=== PATIENT | male | born 1960 | race Caucasian/White ===

== ENCOUNTER 2016-11-14 06:02 | Day surgery (SDC) | payer MEDICARE ==
[~2016-11-14] VITALS: Ht 175.3 cm; Wt 83.6 kg
[~2016-11-14 06:02] MED LIST: ASPIRIN325 MG PO; CARDURA4 MG PO; FOLIC ACID0.8 MG PO; HYDROCODONE-APA1 TAB PO; KLONOPIN1 MG PO; MULTIPLE VITAMI1 TA1 PO; OMEPRAZOLE40 MG PO; PERCOCET 10/3251 TA1 PO; TAZTIA XT360 MG PO; VITAMIN B-1100 M1 PO; VITAMIN B-121000 MCG PO; WELCHOL625 MG PO; ZESTRIL20 MG PO; ZYLOPRIM300 MG PO
[2016-11-14 07:26] LABS: BASOPHILS 0.5 % (0.0-2.0); EOSINOPHILS 2.5 % (0-7); HEMATOCRIT 44.2 % (42.0-54.0); HEMOGLOBIN 15.3 g/dL (13.5-17.5); IMMATURE GRANULOCYTES 3.3 % (0-5); LYMPHOCYTES 23.6 % (15-50); MCH 35.6 pg (26.0-34.0); MCHC 34.6 g/dL (31.0-37.0); MCV 102.8 fL (80.0-100.0); MEAN PLATELET VOLUME 9.7 fL (7.4-10.4); MONOCYTES 8.3 % (2-11); NEUTROPHILS 61.8 % (40-80); PLATELET COUNT 114 10x3/uL (130-400); RDW 14.1 % (11.5-14.5); WBC 6.1 10x3/uL (4.8-10.8)
[2016-11-14] MEDS ORDERED: LEVOTHYROXINE50 MCG PO (07:37)
[2016-11-14] MEDS ORDERED: COZAAR50 MG PO (07:38)
[2016-11-14 07:46] LABS: CALC OSMOLALITY 280 mosm/kg (275-300); CALCIUM 9.5 mg/dL (8.5-10.1); CARBON DIOXIDE 24.7 mmol/L (21.0-32.0); CHLORIDE - SERUM 106 mmol/L (98-107); CREATININE - SERUM 0.9 mg/dL (0.6-1.3); GLUCOSE 105 mg/dL (74-106); SODIUM 142 mmol/L (136-145); UREA NITROGEN 7 mg/dL (7-18); eGFR NON AFRICAN AMERICAN > 90 mL/min (90-120)
[2016-11-14 07:48] VITALS: BP 151/99; Ht 175.3 cm; Wt 83.6 kg
--- NOTE | 2016-11-14 09:40 | NUR ---
09 LIZBETH JOHANSEN, NOTIFIED OF NEED AND ATTEMPTED TO GET A TIME FRAME TO GIVE PT FOR TODAYS CT.
--- NOTE | 2016-11-14 12:14 | NUR ---
1045 REPORT TO TORIBIO BERMEO RN. 1150 REPORT FROM TORIBIO BERMEO RN. [address]
--- NOTE | 2016-11-18 18:58 | OP ---
PATIENT NAME: MELONIE HERNÁNDEZ MEDICAL RECORD: [id number] :64 LOCATION:D.[facility] ADMISSION DATE: SURGEON: GILBERTO CRANDALL MD DATE OF OPERATION: 11/14/2016 PREOPERATIVE DIAGNOSIS: Screening colonoscopy. POSTOPERATIVE DIAGNOSIS: Submucosal colonic mass located at 20 cm from the anal verge, approximately 2 cm in diameter. OPERATION PERFORMED: Colonoscopy to the cecum with biopsies of submucosal mass at 20 cm. SURGEON: Gilberto Crandall MD ANESTHESIA: TIVA per RETAIL LINK ANALYST. REFERRING PHYSICIAN: Dr. Milian. PREOPERATIVE NOTE: Mr. Hernández is a 56-year-old white male patient with hypertension, coronary artery disease and COPD. He had a hernia repair and a partial colectomy about 10 years ago done, the patient says for diverticulitis. He also says he had a small-bowel obstruction postop that required return to the operating room. He has been followed Dr. Milian clinic and at this time, has no complaints relative to his colon or GI tract. He denies any change in bowel habit, constipation or diarrhea. No hematochezia or miguel blood per rectum, no abdominal pain, etc. He says that he has had 1 hospitalization for diverticulitis since his resection. At this time, old records are not yet available, but I have asked medical records to locate them for me for my review. The patient had a standard MiraLax bowel prep and has been n.p.o. past midnight. DESCRIPTION OF PROCEDURE: With the patient under TIVA with propofol per RETAIL LINK ANALYST, he was turned in the lateral decubitus position, digital rectal exam was performed and this was normal. There was no stool in the rectum and the prostate was without nodules or any significant enlargement. There was normal anal sphincter tone and no evidence of perianal sepsis or inflammation. No hemorrhoidal thrombosis, etc. The Olympus colonoscope was introduced and advanced proximally, almost immediately, I noted about a 2 cm diameter submucosal mass pointing or projecting into the lumen of the colon. This was located at about 20 cm from the anal verge. There was no sign of bleeding or ulceration or any abnormal mucosal vasculature. I did not see any other abnormalities in this area or evidence of a prior colonic anastomosis, but his prior anastomosis may have been at this level. Multiple biopsies were obtained of the mass and electrocautery utilized to achieve hemostasis as the patient had not discontinued his aspirin preoperatively. The scope was then advanced onward to the cecum without difficulty and then withdrawn. The prep actually was poor and it is quite possible that smaller mucosal lesions may have been missed during the examination, but no other gross findings were noted. There particularly was no evidence of diverticulosis. The area of biopsy was reinspected and no active bleeding was going on or evidence of any other complication. The scope was then withdrawn further and retroflexed within the rectum and the anal canal examined from above. No pathology being found. The colonoscope was straightened and removed and the patient then continued to be OPERATIVE REPORT [id number] MELONIE HERNÁNDEZ observed in the GI lab and then subsequently in the outpatient department. He tolerated procedure well. There was no blood loss, etc. PLAN: The patient possible have a CT scan of the abdomen and pelvis done today with and without IV and p.o. contrast, I had not ordered rectal contrast because of the fact that he just had biopsies. I will have him back to see me in my office next week by which time I should not only have been able to review his prior records, but should have the results of today's biopsy and CT scan. At the very least, the patient will require repeat colonoscopy in 1 year, just because of his poor prep. At this point, the optimal management of the submucosal mass remains be determined. TRANSINT:[id number] Voice Confirmation ID: [id number] DOCUMENT ID: [id number] GILBERTO CRANDALL MD at 1858 CC: MITCH MILIAN MD [id number] DICTATION DATE: 11/14/16914 DIRECTOR OF DIETARY: 11/14/16 1631 [facility] 11/14/16 [facility] [address] [place] [address]
[2017-01-10] MEDS ORDERED: COMBIVENT RESPIM4 GM INH (14:40)
[2017-01-10] MEDS ORDERED: ASMANEX0.135 GM INH (14:42)
== END 2016-11-14 13:00 | disposition home or self-care (01) ==
LOC: D.OPS 06:02
PROVIDERS: Anesthesiology
DX: Z12.11 Encounter for screening for malignant neoplasm of colon (principal); K52.89 Other specified noninfective gastroenteritis and colitis

== ENCOUNTER 2016-12-24 00:13 | Inpatient (IN) | payer MEDICARE ==
[2016-12-24] VITALS (13 sets, daily range): BP systolic 108–187; BP diastolic 66–112; BMI 26.7
[~2016-12-24] VITALS: Ht 170.2 cm; Wt 77.1 kg
[~2016-12-24 00:13] MED LIST changes: +COZAAR50 MG PO; +LEVOTHYROXINE50 MCG PO
[2016-12-24 01:02] LABS: BASOPHILS 0.7 % (0.0-2.0); HEMOGLOBIN 13.3 g/dL (13.5-17.5); IMMATURE GRANULOCYTES 5.6 % (0-5); LYMPHOCYTES 31.1 % (15-50); MCH 34.5 pg (26.0-34.0); MCHC 33.3 g/dL (31.0-37.0); MCV 103.6 fL (80.0-100.0); MEAN PLATELET VOLUME 9.9 fL (7.4-10.4); MONOCYTES 8.4 % (2-11); NEUTROPHILS 53.2 % (40-80); PLATELET COUNT 100 10x3/uL (130-400); RBC 3.86 10x6/uL (4.20-6.10); RDW 14.5 % (11.5-14.5); WBC 7.2 10x3/uL (4.8-10.8)
[2016-12-24 01:24] LABS: ALBUMIN 3.3 g/dL (3.4-5.0); ALKALINE PHOSPHATASE 86 U/L (46-116); ALT (SGPT) 54 U/L (10-68); BILIRUBIN - TOTAL 0.53 mg/dL (0.2-1.3); CALC OSMOLALITY 284 mosm/kg (275-300); CALCIUM 8.1 mg/dL (8.5-10.1); CARBON DIOXIDE 24.7 mmol/L (21.0-32.0); CHLORIDE - SERUM 106 mmol/L (98-107); CREATININE - SERUM 0.8 mg/dL (0.6-1.3); GLUCOSE 114 mg/dL (74-106); POTASSIUM - SERUM 3.2 mmol/L (3.5-5.1); PROTEIN - SERUM 6.9 g/dL (6.4-8.2); SODIUM 144 mmol/L (136-145); UREA NITROGEN 5 mg/dL (7-18); eGFR NON AFRICAN AMERICAN > 90 mL/min (90-120)
[2016-12-24 01:28] LABS: APTT 25.3 SECONDS (22.8-39.4); INR 1.03 (0.85-1.17); PROTIME 13.3 SECONDS (11.6-15.0)
--- NOTE | 2016-12-24 02:25 | NUR ---
RECIEVED PT TO FLOOR VIA STRETCHER AND FAMILY. ALERT AND ORIENTED AND ABLE TO VERBALIZE NEEDS. PT ASSISTED WITH TRANSFER. IV IS PATENT AND FLUIDS ARE RUNNING FROM ED. PILLOW SPLINT TO RIGHT ANKLE. PT STATES PAIN IS 8/10. PT AND FAMILY ORIENTED TO ROOM AND USE OF CALL LIGHT. NO NEEDS ARE VERBALIZED AT THIS TIME. WILL CONTINUE TO MONITOR. SIDE RAILS ARE UP X 2. BED IS IN LOWEST POSITION. BED ALARM IS PLACED ON FOR SAFETY. CALL LIGHT IS WITHIN REACH.
--- NOTE | 2016-12-24 02:39 | NUR ---
ADMIT ASSESSMENT COMPLETED. SUPERVISOR PLASTIC SHEETS HOOKED UP PER ORDER. PT INSTRUCTED ON USE OF SUPERVISOR PLASTIC SHEETS. UNDERSTANDING VERBALIZED. NO NEEDS ARE VOICED. FAMILY AT BEDSIDE. WILL MONITOR. SIDE RAILS X 2. BED LOW. BED ALARM ON. CALL LIGHT IN REACH.
--- NOTE | 2016-12-24 07:15 | NUR ---
REPORT RECEIVED FROM POLICEWOMAN NURSE. CALL LIGHT IN REACH.
--- NOTE | 2016-12-24 08:29 | NUR ---
ASSESSMENT COMPLETED. CONSENT FORMS SIGNED AND WITNESSED. FAMILY AT BEDSIDE. CALL LIGHT IN REACH. WILL CONTINUE WITH PLAN OF CARE.
--- NOTE | 2016-12-24 08:43 | NUR ---
SEVERAL ATTEMPTS MADE TO CONTACT DR. SHEA UNSUCCESSFUL. ER PHYSICIAN CONCERNED RE: PT'S FOOT. NOTIFIED ADM CHE PERENNIAL HOUSE MANAGER, HE ATTEMPTED AND THEN ADVISED TO CONTACT DR. EASTMAN TO SEE IF HE WOULD BE WILLING TO TAKE CARE OF PT'S FOOT. AFTER SEEING FILMS, DR. EASTMAN AGREED TO TAKE PT TO SURGERY. OR CREW NOTIFIED.
--- NOTE | 2016-12-24 08:44 | NUR ---
URINE SAMPLE COLLECTED AND SENT TO LAB FOR TESTS.
--- NOTE | 2016-12-24 09:10 | NUR ---
TO OR VIA BED.
[2016-12-24 09:37] LABS: UDS - AMPHET NEGATIVE QUAL (NEGATIVE); UDS - BARB NEGATIVE QUAL (NEGATIVE); UDS - BENZO NEGATIVE QUAL (NEGATIVE); UDS - COCAINE NEGATIVE QUAL (NEGATIVE); UDS - METH NEGATIVE QUAL (NEGATIVE); UDS - OPIATE POSITIVE QUAL (NEGATIVE); UDS - PCP NEGATIVE QUAL (NEGATIVE); UDS - THC NEGATIVE QUAL (NEGATIVE)
[2016-12-24 09:50] LABS: APPEARANCE CLEAR (CLEAR); BILIRUBIN NEGATIVE (NEGATIVE); COLOR YELLOW (YELLOW); GLUCOSE NEGATIVE (NEGATIVE); KETONE NEGATIVE (NEGATIVE); LEUKOCYTE ESTERASE NEGATIVE (NEGATIVE); NITRITE NEGATIVE (NEGATIVE); PROTEIN NEGATIVE (NEGATIVE); SPECIFIC GRAVITY 1.015 (1.005-1.020); UROBILINOGEN NORMAL (NORMAL)
--- NOTE | 2016-12-24 11:45 | NUR ---
PRE OP BP 180/100
--- NOTE | 2016-12-24 11:55 | NUR ---
RECEIVED BACK TO ROOM 2217 FROM RECOVERY ROOM VIA BED. VSS. O2 @ 4L PER NC. FAMILY IN ROOM. CALL LIGHT IN REACH.
--- NOTE | 2016-12-24 12:07 | NUR ---
TORADOL AND TYLENOL PER MD ORDER. DR. SHEA IN ROOM TO SPEAK WITH PATIENT. FAMILY AT BEDSIDE. CALL LIGHT IN REACH.
--- NOTE | 2016-12-24 12:32 | NUR ---
GENTAMYCIN IVPB. PASSWORD OBTAINED AND PLACED IN COMPUTER. IS GIVEN TO PATIENT AND EXPLAINED USE. VERBALIZED UNDERSTANDING.
--- NOTE | 2016-12-24 12:48 | NUR ---
PATIENT IS AWAKE, ALERT AND ORIENTED X'S 4. RESPIRATIONS ARE EVEN AND UNLABORED. FAMILY AT BEDSIDE. ALL DENY NEEDS.
--- NOTE | 2016-12-24 13:55 | NUR ---
HOME MEDS ADMINISTERED PER ORDER. WILL RECHECK BP IN ONE HOUR OR SO. WEANED TO ROOM AIR AT THIS TIME. FAMILY AT BEDSIDE. WILL CONTINUE TO MONITOR VITAL SIGNS.
--- NOTE | 2016-12-24 15:20 | NUR ---
RESTING WITH EYES CLOSED. RESP EVEN AND UNLABORED. CALL LIGHT IN REACH. DAUGHTER AT BEDSIDE.
--- NOTE | 2016-12-24 16:23 | NUR ---
BP IS NOW FINALLY DOWN TO 156/89. O2 SAT IS 98% ON ROOM AIR.
--- NOTE | 2016-12-24 18:59 | NUR ---
EVENING MEDS ADMINISTERED PER ORDER. NO CHANGES IN INITIAL ASSESSMENT. CALL LIGHT IN REACH. WILL CONTINUE WITH PLAN OF CARE.
--- NOTE | 2016-12-24 19:30 | NUR ---
RECIEVED SHIFT REPORT. PT IS LYING IN BED. ALERT AND ORIENTED AND ABLE TO VERBALIZE NEEDS. IV IS PATENT AND FLUIDS ARE RUNNING PER ORDER. PT IS ON BEDREST POST OP BUT IS ABLE TO TURN SELF IN BED FOR COMFORT AND SKIN CARE. DRESSING AND EXTERNAL FIXATOR TO RIGHT ANKLE C/D/I. PT DENIES ANY PAIN WITH GYROSCOPIC INSTRUMENT MECHANIC PUMP AT THIS TIME. NO NEEDS ARE VERBALIZED AT THIS TIME. WILL CONTINUE TO MONITOR. SIDE RAILS ARE UP X 2. BED IS IN LOWEST POSITION. BED ALARM IS ON FOR SAFETY. CALL LIGHT IS WITHIN REACH.
--- NOTE | 2016-12-24 21:56 | NUR ---
SHIFT ASSESSMENT COMPLETED. NIGHT MEDS GIVEN WITH NO PROBLEMS. NO NEEDS ARE VOICED AT THIS TIME. WILL MONITOR. DAUGHTER AT BEDSIDE. SIDE RAILS X 2. BED LOW. BED ALARM ON. CALL LIGHT IN REACH.
[2016-12-25 00:30] VITALS: BP 151/93
[2016-12-25 04:39] VITALS: BP 171/107
--- NOTE | 2016-12-25 07:40 | NUR ---
AWAKE AND ALERT AT THIS TIME. DAUGHTER AT BEDSIDE. EXTERNAL FIXATION DEVICE RO RLE. SMALL AMOUNT OF BLOODY DRAINAGE NOTED TO PINK UNDERPAD. ICE OFF AT THIS TIME AND LEG ELEVATED. REFUSES SCD TO LEFT LEG. DENIES PAIN, STEREOPTIC PROJECTION TOPOGRAPHER IN USE FOR PAIN CONTROL. IV PATENT WITH NO S/S OF INFILATRATION. VOIDING WITHOUT ISSUE. DENIES NEEDS AT PRESENT TIME, BED ALARM ON AND IN WORKING ORDER WITH SRX3. CALL LIGHT IN REACH, WILL CONTINUE WITH PLAN OF CARE.
[2016-12-25 07:49] VITALS: BP 154/96
[2016-12-25 10:23] LABS: HEMATOCRIT 40.7 % (42.0-54.0); HEMOGLOBIN 13.9 g/dL (13.5-17.5); LYMPHOCYTES 5.4 % (15-50); MCHC 34.2 g/dL (31.0-37.0); MCV 102.5 fL (80.0-100.0); MEAN PLATELET VOLUME 9.8 fL (7.4-10.4); NEUTROPHILS 88.4 % (40-80); PLATELET COUNT 110 10x3/uL (130-400); RBC 3.97 10x6/uL (4.20-6.10); RDW 15.1 % (11.5-14.5)
[2016-12-25 10:24] LABS: WBC 12.2 10x3/uL (4.8-10.8)
[2016-12-25 10:31] LABS: ALBUMIN 3.1 g/dL (3.4-5.0); ANION GAP 17.3 mmol/L (8-16); BILIRUBIN - TOTAL 0.37 mg/dL (0.2-1.3); CALCIUM 8.5 mg/dL (8.5-10.1); CARBON DIOXIDE 23.2 mmol/L (21.0-32.0); POTASSIUM - SERUM 3.5 mmol/L (3.5-5.1)
[2016-12-25 10:32] LABS: CREATININE - SERUM 1.3 mg/dL (0.6-1.3)
--- NOTE | 2016-12-25 11:13 | NUR ---
Patient Name: MELONIE HERNÁNDEZ Admission Status: ER Accout number: [id number] Admission Date: 12-24-2016 : 1960 Admission Diagnosis: Attending: MEG Current LOS: 1 Anticipated DC Date: 12-27-2016 Planned Disposition: Home with Home Health Primary Insurance: MEDICARE A & B Discharge Planning Comments: CM MET WITH PATIENT AND DAUGHTER (CHARU) REGARDING D/C NEEDS AND PLANS. PATIENTS MOTHER WAS ALSO PRESENT. PATIENT LIVES ALONE BUT WILL BE GOING TO HIS DAUGHTERS HOME AT DISCHARGE. PATIENT IS INDEPENDENT WITH HIS CARE AND DOES NOT HAVE ANY DME AT HOME. PATIENTS MOTHER HAS A WALKER AND A ROLATOR IF NEEDED. PATIENTS DAUGHTERS HOME HAS 4 STEPS W/RAILS TO ENTER AND NO STAIRS INSIDE. PATIENTS PCP IS DR. JARAMILLO AND USES [facility]. PATIENT AND DAUGHTER CHOSE [facility] AND SIGNED THE [facility] FORM. CM WILL CONTINUE TO FOLLOW PATIENT WITH D/C NEEDS AND PLANS. PCP DR. JARAMILLO [facility]- [phone] CHARU (DAUGHTER) [phone] Wound Care Technician: Juliet Stratton Is the patient Alert and Oriented? Yes 0 * How many steps to enter\exit or inside your home? 4 W/RAILS 0 * PCP DR. JARAMILLO 0 * Pharmacy [facility] 0 * Preadmission Environment Home Alone 0 * ADLs Independent 0 * Equipment None 0 * Other Equipment AVAILABILITY TO A WALKER 0 * List name and contact numbers for known caregivers / representatives who currently or will assist patient after discharge: CHARU (DAUGHTER) [phone] 0 * Community resources currently utilized None 0 * Additional services required to return to the preadmission environment? Yes 0 * Can the patient safely return to the preadmission environment? Yes 0 * Has this patient been hospitalized within the prior 30 days at any hospital? No 0 Grand Total: 0
[2016-12-25 11:40] VITALS: BP 124/69
[2016-12-25 12:45] VITALS: Ht 170.2 cm; Wt 77.1 kg
[2016-12-25 14:58] VITALS: BP 118/61
[2016-12-25 20:00] VITALS: BP 132/81
--- NOTE | 2016-12-25 20:00 | NUR ---
ASSESSMENT PER FLOWSHEET. IV PATENT LEFT FOREARM OF 1/2NS AT 50CC'S/HR SITE CLEAR VISITOR INFORMATION ASSISTANT OF DILAUDID IN USE WITH SETTINGS AT 0.2MG Q10MIN W/4MG Q4H L/O. FAMILY IN ROOM VOIDS WELL IN URINAL. DRESSING WITH EXTERNAL FIXATOR IN PLACE TO RT ANKLE C/D/I. ELEVATED ON PILLOWS.
--- NOTE | 2016-12-25 21:30 | NUR ---
MEDS GIVEN PER MAR.
[2016-12-26] VITALS: BP 137/86
--- NOTE | 2016-12-26 | NUR ---
RESTING AT THIS TIME EASILY IRRITATED IF WOKE UP.
--- NOTE | 2016-12-26 03:00 | NUR ---
RESTING QUIETLY VOIDS WELL IN URINAL.
[2016-12-26 04:00] VITALS: BP 153/101
--- NOTE | 2016-12-26 05:30 | NUR ---
LAB HERE TO DRAW BLOOD. MEDS GIVEN PER NOV.
[2016-12-26 05:41] LABS: BASOPHILS 0.2 % (0.0-2.0); EOSINOPHILS 0.1 % (0-7); HEMATOCRIT 37.7 % (42.0-54.0); HEMOGLOBIN 12.7 g/dL (13.5-17.5); IMMATURE GRANULOCYTES 2.2 % (0-5); LYMPHOCYTES 12.7 % (15-50); MCH 35.1 pg (26.0-34.0); MCHC 33.7 g/dL (31.0-37.0); MCV 104.1 fL (80.0-100.0); MEAN PLATELET VOLUME 10.4 fL (7.4-10.4); MONOCYTES 6.6 % (2-11); NEUTROPHILS 78.2 % (40-80); PLATELET COUNT 101 10x3/uL (130-400); RBC 3.62 10x6/uL (4.20-6.10); RDW 14.7 % (11.5-14.5); WBC 12.1 10x3/uL (4.8-10.8)
[2016-12-26 06:22] LABS: ALBUMIN 2.8 g/dL (3.4-5.0); ALKALINE PHOSPHATASE 80 U/L (46-116); BILIRUBIN - TOTAL 0.42 mg/dL (0.2-1.3); CALCIUM 8.5 mg/dL (8.5-10.1); CARBON DIOXIDE 25.5 mmol/L (21.0-32.0); CHLORIDE - SERUM 107 mmol/L (98-107); POTASSIUM - SERUM 3.6 mmol/L (3.5-5.1); PROTEIN - SERUM 6.6 g/dL (6.4-8.2); SODIUM 142 mmol/L (136-145); UREA NITROGEN 11 mg/dL (7-18)
[2016-12-26 06:47] LABS: ALT (SGPT) 34 U/L (10-68); CALC OSMOLALITY 282 mosm/kg (275-300); CREATININE - SERUM 0.9 mg/dL (0.6-1.3); GLUCOSE 117 mg/dL (74-106); eGFR NON AFRICAN AMERICAN > 90 mL/min (90-120)
--- NOTE | 2016-12-26 07:32 | NUR ---
SLEEPING AT THIS TIME WITH RESPIRATIONS EVEN AND NON LABORED. DAUGHTER SLEEPING AT BEDSIDE. VEST BASTER IN USE FOR PAIN, CALL LIGHT IN REACH. SRX2 WITH BED IN LOWEST POSITION AND WHEELS LOCKED. BED ALARM ON AND IN WORKING ORDER. WILL CONTINUE WITH PLAN OF CARE.
[2016-12-26 07:38] VITALS: BP 145/79
--- NOTE | 2016-12-26 09:15 | NUR ---
SCHEDULED MEDICATIONS ADMINISTERED AT THIS TIME. PHYSICAL THERAPY WORKING WITH PATIENT AT THIS TIME. DAUGHTER AT BEDSIDE. PLAN TO D/C WAITER/WAITRESS [place], BUT PT STATES THAT DR SHEA HAS GIVEN HIM STRONGER PAIN MEDICATION IN THE PAST DUE TO HIS CHRONIC PAIN HISTORY. EXPLAINED THAT I WOULD NOTIFY THE NURSE PRACTITIONER AND SEE IF A CHANGE COULD BE MADE. PT VERBALIZED UNDERSTANDING. CALL LIGHT IN REACH, WILL CONTINUE WITH PLAN OF CARE.
--- NOTE | 2016-12-26 10:14 | NUR ---
PRN OXYCODONE 10MG ADMINISTERED PER ORDER FOR PAIN.
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
[2016-12-26 11:54] VITALS: BP 132/76
--- NOTE | 2016-12-26 14:00 | NUR ---
UP TO THE CHAIR AT THIS TIME WITH MINIMAL ASSISTANCE. LINENS CHANGED PER STUDENT. PT ASSISTED BACK TO BED WITH BED ALARM ON AND IN WORKING ORDER. CALL LIGHT IN REACH, WILL CONTINUE WITH PLAN OF CARE.
--- NOTE | 2016-12-26 14:57 | NUR ---
CM REASSESSMENT NOTE: REFERRAL FAXED TO [facility]
[2016-12-26 15:49] VITALS: BP 128/74
[2016-12-26 20:46] VITALS: BP 129/78
[2016-12-27 04:00] VITALS: BP 152/91
--- NOTE | 2016-12-27 06:00 | NUR ---
ASSESSMENT AND NURSES NOTES DONE ON DOWNTIME FLOPWSHEET. COMPUTERS DOWN. SEE DOWNTIME MARS FOR MEDS GIVEN.
--- NOTE | 2016-12-27 07:20 | NUR ---
AWAKE AND ALERT AT THIS TIME. DENIES NEEDS AT PRESENT TIME. SRX2 WITH BED IN LOWEST POSITION AND WHEELS LOCKED. CALL LIGHT IN REACH AND BED ALARM ON. WILL CONTINUE WITH PLAN OF CARE.
[2016-12-27] MEDS ORDERED: BACTRIM DS TABL1 TAB PO (08:58)
[2016-12-27 09:00] VITALS: BP 145/99
--- NOTE | 2016-12-27 09:03 | NUR ---
PRN OXY ADMINISTERED PER ORDER AT THIS TIME. DENIES FURTHER NEEDS AT THIS TIME. CALL LIGHT IN REACH, WILL CONTINUE WITH PLAN OF CARE.
[2016-12-27 10:18] LABS: BASOPHILS 0.3 % (0.0-2.0); EOSINOPHILS 0.8 % (0-7); HEMATOCRIT 39.4 % (42.0-54.0); HEMOGLOBIN 13.2 g/dL (13.5-17.5); IMMATURE GRANULOCYTES 3.7 % (0-5); LYMPHOCYTES 18.4 % (15-50); MCH 35.1 pg (26.0-34.0); MCHC 33.5 g/dL (31.0-37.0); MCV 104.8 fL (80.0-100.0); MEAN PLATELET VOLUME 11.1 fL (7.4-10.4); MONOCYTES 6.7 % (2-11); NEUTROPHILS 70.1 % (40-80); PLATELET COUNT 112 10x3/uL (130-400); RBC 3.76 10x6/uL (4.20-6.10); RDW 14.7 % (11.5-14.5); WBC 9.1 10x3/uL (4.8-10.8)
[2016-12-27 10:38] LABS: ALBUMIN 2.8 g/dL (3.4-5.0); ALKALINE PHOSPHATASE 93 U/L (46-116); CALC OSMOLALITY 281 mosm/kg (275-300); CALCIUM 8.4 mg/dL (8.5-10.1); CARBON DIOXIDE 24.7 mmol/L (21.0-32.0); CHLORIDE - SERUM 105 mmol/L (98-107); CREATININE - SERUM 0.9 mg/dL (0.6-1.3); GLUCOSE 118 mg/dL (74-106); POTASSIUM - SERUM 3.8 mmol/L (3.5-5.1); PROTEIN - SERUM 6.2 g/dL (6.4-8.2); SODIUM 141 mmol/L (136-145); UREA NITROGEN 12 mg/dL (7-18); eGFR NON AFRICAN AMERICAN > 90 mL/min (90-120)
[2016-12-27 10:40] LABS: ALT (SGPT) 43 U/L (10-68)
--- NOTE | 2016-12-27 11:21 | NUR ---
CM REASSESSMENT NOTE: PATIENT IS D/C HOME TODAY-FAMILY DRIVING HIM. PATIENTS MOTHER HAS A WALKER FOR PATIENT. PATIENT REFUSED SHOWER CHAIR (DAUGHTER WANTED HIM TO HAVE ONE) STATING HE IS NOT GOING TO CHANCE THAT FOOT GETTING WET. FAMILY WAS PRESENT AT THAT TIME AND STATED IF HE CHANGES HIS MIND THEY WILL GET ONE FOR HIM. D/C IS BEING FAXED ALONG WITH WOUND CARE TO [facility]. IMM SERVED AND SIGNED
--- NOTE | 2016-12-27 15:00 | NUR ---
DISCHARGE PAPERWORK REVIEWED WITH PATIENT AND IV D/C TO LEFT FOREARM WITH CATH TIP INTACT. DENIES QUESTIONS OR CONCERNS.
== END 2016-12-27 15:05 | disposition home health service (06) | DRG 493 ==
LOC: D.ER 00:13 → D.MS 00:53 → D.ER 00:53 → D.MS 12-26 13:43
PROVIDERS: Emergency Medicine; Orthopaedic Surgery Sports Medicine; Physician Assistant Medical; ADMIT Family Medicine
PROC: 0QSL05Z Reposition Right Tarsal with External Fixation Device, Open Approach (ICD-10-PCS; 2016-12-24)
PROC: 0QSJ04Z Reposition Right Fibula with Internal Fixation Device, Open Approach (ICD-10-PCS; principal; 2016-12-24 08:49)
DX: S82.61XC Displaced fracture of lateral malleolus of right fibula, initial encounter for open fracture type IIIA, IIIB, or IIIC (principal); S92.191 Other fracture of right talus; Y04.0XXA Assault by unarmed brawl or fight, initial encounter; I25.10 Atherosclerotic heart disease of native coronary artery without angina pectoris; F41.9 Anxiety disorder, unspecified; F41.0 Panic disorder [episodic paroxysmal anxiety]; E03.9 Hypothyroidism, unspecified; F10.20 Alcohol dependence, uncomplicated; I10 Essential (primary) hypertension; K59.00 Constipation, unspecified; I25.2 Old myocardial infarction; Z95.5 Presence of coronary angioplasty implant and graft; F17.200 Nicotine dependence, unspecified, uncomplicated

== ENCOUNTER 2017-01-11 08:33 | Day surgery (SDC) | payer MEDICARE ==
[~2017-01-11] VITALS: Ht 175.3 cm; Wt 83.9 kg
[~2017-01-11 08:33] MED LIST changes: +ASMANEX0.135 GM INH; +BACTRIM DS TABL1 TAB PO; +COMBIVENT RESPIM4 GM INH
[2017-01-11 09:43] LABS: HEMOGLOBIN 13.8 g/dL (13.5-17.5); MCH 34.8 pg (26.0-34.0); MCHC 32.9 g/dL (31.0-37.0); MCV 105.8 fL (80.0-100.0); MEAN PLATELET VOLUME 9.7 fL (7.4-10.4); RBC 3.97 10x6/uL (4.20-6.10); RDW 13.9 % (11.5-14.5); WBC 6.6 10x3/uL (4.8-10.8)
[2017-01-11] MEDS ORDERED: DILAUDID2 MG PO (09:45)
[2017-01-11 09:56] VITALS: BP 128/76; Ht 175.3 cm; Wt 83.9 kg
[2017-01-11] MEDS ORDERED: DILAUDID8 MG PO (12:04)
--- NOTE | 2017-01-11 14:08 | NUR ---
1350-PT. DISCHARGED TO PERSONAL CAR VIA WHEELCHAIR TO PERSONAL CAR, LEFT WITH FAMILY DRIVING.
--- NOTE | 2017-01-19 11:39 | OP ---
PATIENT NAME: MELONIE HERNÁNDEZ MEDICAL RECORD: [id number] :64 LOCATION:D.OPS ADMISSION DATE: SURGEON: GILBERTO SHEA MD DATE OF OPERATION: 01/11/2017 Orthopedic Surgery Operative Note PREOPERATIVE DIAGNOSES: Prior grade III open tibia fracture with external fixator applied and syndesmosis disruption. POSTOPERATIVE DIAGNOSES: Prior grade III open tibia fracture with external fixator applied and syndesmosis disruption. PROCEDURES: 1. Removal of external fixator. 2. Syndesmosis repair using a TightRope. OPERATIVE SUMMARY IN DETAIL: After obtaining the appropriate preoperative orthopedic surgery consent as well as anesthetic consultation, evaluation and clearance, the patient was brought to the operating room and placed on the operating table in supine position. After adequate general laryngeal mask airway was administered, the right lower extremity was prepped and draped in routine sterile fashion. Serial and sequential left external fixator was removed. This was followed by further prepping. Croydon pins and transcalcaneal pin was removed. Having completed this, a large [id number] clamp was then placed across the fibula and tibia. This was done with the foot held in neutral plantar position. Next, the guidewire for the syndesmosis TightRope was then placed through the lateral cortex of the tibia through the previously placed intramedullary tip of fibular bridger and then into the tibia to the contralateral side. Reaming was done again through the fibula to the bridger and into the tibia. This was removed and then the syndesmosis TightRope was deployed. It was tied very tightly while the clamp was held in place in neutral. Having completed this, the wounds were irrigated and closed with 4-0 Prolene. Sterile dressings were applied. Tourniquet was deflated and a L&U posterior splint was applied. The patient was awakened, taken to recovery room in stable condition. All final needle and sponge counts were correct. TRANSINT:[id number] Voice Confirmation ID: [id number] DOCUMENT ID: [id number] GILBERTO SHEA MD at 1139 CC: [id number] DICTATION DATE: 01/18/172053 SPECIAL EFFECTS TECHNICIAN: 01/19/172 [facility] 01/11/17 [place] [id number]
== END 2017-01-11 13:50 | disposition home or self-care (01) ==
LOC: D.OPS 08:33 → D.PAN 11:00 → D.OPS 13:50 → D.PAN 14:45 → D.OPS 15:15 → D.PAN 15:15
PROVIDERS: Anesthesiology
DX: S82.91 Unspecified fracture of right lower leg (principal); I25.10 Atherosclerotic heart disease of native coronary artery without angina pectoris; I10 Essential (primary) hypertension; K21.9 Gastro-esophageal reflux disease without esophagitis; E03.9 Hypothyroidism, unspecified; Z01.812 Encounter for preprocedural laboratory examination

== ENCOUNTER → 2017-03-22 10:08 | Outpatient (CLI) | payer MEDICARE ==
[2017-01-11 09:56] VITALS: BMI 27.3
[~2017-03-22 10:08] MED LIST changes: +DILAUDID2 MG PO; +DILAUDID8 MG PO
== END | disposition home or self-care (01) ==
LOC: D.MRI 03-19 13:00
DX: M75.41 Impingement syndrome of right shoulder (principal)

== ENCOUNTER 2017-04-19 05:59 | Day surgery (SDC) | payer MEDICARE ==
[2017-04-18 14:38] LABS: HEMATOCRIT 43.2 % (42.0-54.0); HEMOGLOBIN 15.1 g/dL (13.5-17.5); MCV 97.3 fL (80.0-100.0); MEAN PLATELET VOLUME 9.7 fL (7.4-10.4); RBC 4.44 10x6/uL (4.20-6.10); RDW 15.2 % (11.5-14.5); WBC 6.6 10x3/uL (4.8-10.8)
[2017-04-18 14:57] LABS: CALC OSMOLALITY 281 mosm/kg (275-300); CALCIUM 8.9 mg/dL (8.5-10.1); CARBON DIOXIDE 25.7 mmol/L (21.0-32.0); CHLORIDE - SERUM 104 mmol/L (98-107); CREATININE - SERUM 0.9 mg/dL (0.6-1.3); GLUCOSE 121 mg/dL (74-106); POTASSIUM - SERUM 3.6 mmol/L (3.5-5.1); SODIUM 141 mmol/L (136-145); UREA NITROGEN 12 mg/dL (7-18); eGFR NON AFRICAN AMERICAN > 90 mL/min (90-120)
[~2017-04-19] VITALS: Ht 175.3 cm; Wt 85.3 kg
[2017-04-19 12:36] VITALS: BP 141/86; Ht 175.3 cm; Wt 85.3 kg
[2017-04-19] MEDS ORDERED: DILAUDID4 MG PO (14:27)
--- NOTE | 2017-04-19 17:20 | NUR ---
1510- PT BACK TO ROOM, TRANSFERRED SELF TO BED WITHOUT INCIDENT. RIGHT ARM IN SLING. PT REPORTS NO PAIN OR SENSATION TO THE RIGHT UPPER EXTREMITY. VSS. WILL MONITOR. 1610- UP OOB TO BR, VOIDED WITHOUT DIFFICULTY. 1625- IV D/C'D, PT TOLERATED. CATHETER INTACT. 1630- DISCHARGE INSTRUCTIONS COMPLETED. PAPERWORK SIGNED. 1635- PT DISCHARGED VIA WHEELCHAIR WITH DAUGHTER.
== END 2017-04-19 16:35 | disposition home or self-care (01) ==
LOC: D.OPS 05:59 → D.PAN 10:00 → D.OPS 13:35 → D.PAN 15:00 → D.OPS 16:35
PROVIDERS: Anesthesiology
DX: M75.101 Unspecified rotator cuff tear or rupture of right shoulder, not specified as traumatic (principal); I10 Essential (primary) hypertension; I25.10 Atherosclerotic heart disease of native coronary artery without angina pectoris; Z72.0 Tobacco use; M75.41 Impingement syndrome of right shoulder; Z01.810 Encounter for preprocedural cardiovascular examination; Z01.811 Encounter for preprocedural respiratory examination; Z01.812 Encounter for preprocedural laboratory examination

== ENCOUNTER 2017-05-08 05:22 | Day surgery (SDC) | payer MEDICARE ==
[~2017-05-08] VITALS: Ht 175.3 cm; Wt 83.6 kg
[~2017-05-08 05:22] MED LIST changes: +DILAUDID4 MG PO
[2017-05-08 06:57] VITALS: BP 129/88; Ht 175.3 cm; Wt 83.6 kg
[2017-05-08 07:36] LABS: BASOPHILS 0.4 % (0-2); EOSINOPHILS 2.6 % (0-7); HEMATOCRIT 45.1 % (42.0-54.0); HEMOGLOBIN 15.4 g/dL (13.5-17.5); IMMATURE GRANULOCYTES 2.4 % (0-5); LYMPHOCYTES 30.1 % (15-50); MCH 33.8 pg (26.0-34.0); MCHC 34.1 g/dL (31.0-37.0); MCV 99.1 fL (80.0-100.0); MONOCYTES 8.4 % (2-11); NEUTROPHILS 56.1 % (40-80); PLATELET COUNT 135 10x3/uL (130-400); RBC 4.55 10x6/uL (4.20-6.10); RDW 16.1 % (11.5-14.5)
[2017-05-08 14:47] LABS: BASOPHILS 0.4 % (0-2); EOSINOPHILS 2.4 % (0-7); HEMOGLOBIN 15.5 g/dL (13.5-17.5); IMMATURE GRANULOCYTES 2.2 % (0-5); LYMPHOCYTES 37.3 % (15-50); MCH 34.1 pg (26.0-34.0); MCHC 34.4 g/dL (31.0-37.0); MCV 99.1 fL (80.0-100.0); MEAN PLATELET VOLUME 9.8 fL (7.4-10.4); MONOCYTES 8.6 % (2-11); NEUTROPHILS 49.1 % (40-80); PLATELET COUNT 120 10x3/uL (130-400); RBC 4.54 10x6/uL (4.20-6.10); RDW 16.1 % (11.5-14.5)
--- NOTE | 2017-05-08 16:56 | NUR ---
1400 IV DC WITH CATHER TIP INTACT
--- NOTE | 2017-05-08 17:00 | NUR ---
1400 STATED HE HAD BRIGTH RED BLOOD WHJEN HE WENT TO BATHROOM DR CRANDALL CALL STAT [facility] ORDERED,PATIENT INFORMED HE NEEDED TO STAY FOR A COUPLE MORE HOURS, 1430 PATIENT AT DESK ASKING TO BE DC HOME LAB WORK CALLED TO [facility] ASKING PT TO STAY A LITTLE LONGER , PT REFUSED, [facility] OK DC HOME
--- NOTE | 2017-05-09 21:03 | OP ---
PATIENT NAME: MELONIE HERNÁNDEZ MEDICAL RECORD: [id number] :64 [facility] ADMISS[facility] DATE: SURGEON: GILBERTO CRANDALL MD DATE OF OPERATION: 05/08/2017 PREOPERATIVE DIAGNOSES: Colon mass and additional diagnosis of atypical chest pain and gastroesophageal reflux disease. ADDITIONAL DIAGNOSES: Hypertension, coronary artery disease with past history of myocardial infarction and coronary stenting and tobacco use. POSTOPERATIVE DIAGNOSES: Benign appearing submucosal mass of the colon at about 20 cm from the anus occurring in a staple line of an old colonic anastomosis, benign appearing without change in the last 6 months. ADDITIONAL DIAGNOSES: About a 4-cm hiatus hernia with fairly free reflux, visible end of the distal esophagus without visible esophagitis. 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 ANESTHESIA: TIVA per [employer]. SURGEON: Gilberto Crandall MD OPERATION PERFORMED: Colonoscopy to the cecum with multiple biopsies of mass at 20 cm and old staple suture line from colonic resection. PRIMARY CARE PROVIDER: Nicole Sotomayor, nurse practitioner with [facility]. PREOPERATIVE NOTE: Mr. Hernández is a 57-year-old white male patient who has a history of a prior colon resection for complications of diverticulitis with an anastomosis in the pelvis and findings last year colonoscopy of a mass what I thought was the anastomotic suture line and the colon about 20 cm from the anus biopsies all revealed normal colonic mucosa. A CT scan did not reveal a mass or any evidence of lymphadenopathy, etc. It was my feeling that this was most likely a benign lesion, possibly scar or related at least to the old recommendation that he have a repeat examination done this in 6 months from the first exam. Noted also that his prep for the first exam was poor and hopefully, it will be better today. He has completed a standard MiraLax prep. With the patient under TIVA, the throat was sprayed with benzocaine and the Olympus gastroscope was introduced through the mouth the pharynx into the esophagus and advanced down into the stomach. The esophagus was normal in appearance with the exception of the distal 4 cm where there was a hiatus hernia present and some mildly irregular Z line. No strictures, ulcerations or visible esophagitis. The cardiac and fundic mucosa were normal in appearance. I did see lots of chewing tobacco or snuff residual in the stomach, obviously consumed this morning. The mucosa of the body and the antrum of the stomach was atrophic appearing with a paucity of rugal folds. Multiple biopsies were taken there for CLOtest as well as for histology. The scope was passed through the pylorus into the first and second portions of the duodenum, which were completely normal in appearance. The scope was brought back into the stomach and insufflated air was OPERATIVE REPORT [id number] MELONIE HERNÁNDEZ suctioned away and the scope withdrawn. The patient was then turned for a digital rectal exam, which was normal. The Olympus colonoscope was then introduced transanally and advanced to the mass at 20 cm. I noted it really was unchanged in its appearance from last October, very benign in appearance. Only this time, the prep was much better and I was able to see a staple imbedded within the mass and scarring from the obvious prior anastomosis. Because of prep was better, I went on with the insertion of the scope, all the way into the cecum and then in slow removal, no other colonic lesions were identified. The removal time was about 10 minutes and the mass at 20 cm was biopsied multiple times in an attempt to get some submucosal tissue. There was minor bleeding from the biopsy sites. The scope was then completely withdrawn. The patient will be recovered an outpatient and allowed to go home later today. He will continue all the same medications and diet and follow up with me in 1 week. We need to check on the results of the biopsy. I would like to get an MRI; however, the patient recently had ORIF for an ankle fracture and a metallic hardware may prevent us from being able to get an MRI exam. My impression at this point and course pending results of today's biopsies is that this lesion is benign and we should continue to observe it and I recommend another endoscopic exam in 12-18 months. I also recommend for the patient's GERD that he discontinue the use of tobacco if at all possible and that he take an acid reducing medication such as H2 receptor marychuy like Pepcid or Zantac p.r.n. for heartburn, chest pain, etc. TRANSINT:[id number] Voice Confirmation ID: [id number] DOCUMENT ID: [id number] CC: Nicole Sotomayor, [facility], [phone] GILBERTO CRANDALL MD at 0929 CC: NICOLE SOTOMAYOR [phone] DICTATION DATE: 05/08/17 1251 CAN TOP SETTER: 05/08/17 1458 DEP SDC 05/08/17 [facility] [address] [place] [address]
== END 2017-05-08 15:00 | disposition home or self-care (01) ==
LOC: D.OPS 05:22
PROVIDERS: Anesthesiology; Surgery
DX: K63.5 Polyp of colon (principal); K21.9 Gastro-esophageal reflux disease without esophagitis; K44.9 Diaphragmatic hernia without obstruction or gangrene; K29.40 Chronic atrophic gastritis without bleeding; R12 Heartburn; R07.89 Other chest pain; F17.220 Nicotine dependence, chewing tobacco, uncomplicated; I10 Essential (primary) hypertension; I25.10 Atherosclerotic heart disease of native coronary artery without angina pectoris; I25.2 Old myocardial infarction; Z95.5 Presence of coronary angioplasty implant and graft; Z01.812 Encounter for preprocedural laboratory examination

== ENCOUNTER → 2017-06-08 08:24 | Outpatient (CLI) | payer MEDICARE ==
[2017-05-08 06:57] VITALS: BMI 27.2
== END | disposition home or self-care (01) ==
LOC: D.MRI 08:00
DX: K63.9 Disease of intestine, unspecified (principal)

== ENCOUNTER 2017-12-17 11:13 | Emergency (ER) | payer MEDICARE ==
[2017-05-08 06:57] VITALS: BMI 27.2
[2017-12-17 11:55] LABS: BASOPHILS 0.3 % (0-2); HEMATOCRIT 44.3 % (42.0-54.0); HEMOGLOBIN 15.6 g/dL (13.5-17.5); IMMATURE GRANULOCYTES 2.6 % (0-5); LYMPHOCYTES 20.9 % (15-50); MCH 36.4 pg (26.0-34.0); MCHC 35.2 g/dL (31.0-37.0); MCV 103.5 fL (80.0-100.0); MEAN PLATELET VOLUME 10.3 fL (7.4-10.4); MONOCYTES 5.7 % (2-11); NEUTROPHILS 68.5 % (40-80); PLATELET COUNT 126 10x3/uL (130-400); RBC 4.28 10x6/uL (4.20-6.10); RDW 16.7 % (11.5-14.5); WBC 9.7 10x3/uL (4.8-10.8)
[2017-12-17 12:22] LABS: ALBUMIN 3.1 g/dL (3.4-5.0); ALKALINE PHOSPHATASE 237 U/L (46-116); ALT (SGPT) 49 U/L (10-68); BILIRUBIN - TOTAL 1.19 mg/dL (0.2-1.3); CALC OSMOLALITY 268 mosm/kg (275-300); CALCIUM 8.1 mg/dL (8.5-10.1); CARBON DIOXIDE 26.4 mmol/L (21.0-32.0); CHLORIDE - SERUM 98 mmol/L (98-107); CREATININE - SERUM 1.3 mg/dL (0.6-1.3); GLUCOSE 108 mg/dL (74-106); POTASSIUM - SERUM 3.8 mmol/L (3.5-5.1); PROTEIN - SERUM 7.3 g/dL (6.4-8.2); SODIUM 135 mmol/L (136-145); UREA NITROGEN 7 mg/dL (7-18); eGFR NON AFRICAN AMERICAN 61 mL/min (90-120)
[2017-12-17 12:32] LABS: CHOL - HDL RATIO 20.2 ratio (2.3-4.9); CHOLESTEROL, TOTAL 262 mg/dL (0-200); CKMB 1.4 U/L (0.0-3.6); CREATINE KINASE 160 UL (21-232); HDL CHOLESTEROL 13 mg/dL (32-96); LDL CHOLESTEROL 194 mg/dL (0-100); LDL-HDL RATIO 14.9 ratio (1.5-3.5); PRO BNP 100 pg/mL (0-125); TRIGLYCERIDE 279 mg/dL (30-200)
[2017-12-17 12:33] LABS: TROPONIN-I < 0.017 ng/mL (0.000-0.060)
== END 2017-12-17 18:26 | disposition home or self-care (01) ==
LOC: D.ER 11:13
PROVIDERS: Emergency Medicine
DX: R07.9 Chest pain, unspecified (principal)

== ENCOUNTER 2018-01-21 12:27 | Inpatient (IN) | payer MEDICARE ==
[~2018-01-21] VITALS: Ht 175.3 cm; Wt 98.0 kg
[2018-01-21] VITALS (12 sets, daily range): BP systolic 105–138; BP diastolic 61–84; BMI 31.9
[2018-01-21 12:59] LABS: BASOPHILS 0.2 % (0-2); EOSINOPHILS 1.7 % (0-7); HEMATOCRIT 37.9 % (42.0-54.0); HEMOGLOBIN 13.3 g/dL (13.5-17.5); IMMATURE GRANULOCYTES 2.9 % (0-5); LYMPHOCYTES 13.5 % (15-50); MCH 37.7 pg (26.0-34.0); MCHC 35.1 g/dL (31.0-37.0); MCV 107.4 fL (80.0-100.0); MEAN PLATELET VOLUME 10.9 fL (7.4-10.4); MONOCYTES 7.2 % (2-11); NEUTROPHILS 74.5 % (40-80); RBC 3.53 10x6/uL (4.20-6.10); RDW 15.4 % (11.5-14.5); WBC 16.9 10x3/uL (4.8-10.8)
[2018-01-21 13:11] LABS: PLATELET COUNT 209 10x3/uL (130-400)
[2018-01-21 13:40] LABS: ALKALINE PHOSPHATASE 251 U/L (46-116); ALT (SGPT) 63 U/L (10-68); CALC OSMOLALITY 261 mosm/kg (275-300); CALCIUM 8.8 mg/dL (8.5-10.1); CARBON DIOXIDE 15.9 mmol/L (21.0-32.0); CHLORIDE - SERUM 97 mmol/L (98-107); CKMB 0.8 U/L (0.0-3.6); CREATINE KINASE 94 UL (21-232); CREATININE - SERUM 3.7 mg/dL (0.6-1.3); GLUCOSE 132 mg/dL (74-106); MAGNESIUM - SERUM 1.7 mg/dL (1.8-2.4); PROTEIN - SERUM 7.4 g/dL (6.4-8.2); SODIUM 129 mmol/L (136-145); TROPONIN-I < 0.017 ng/mL (0.000-0.060); UREA NITROGEN 15 mg/dL (7-18); eGFR NON AFRICAN AMERICAN 18 mL/min (90-120)
[2018-01-21 13:43] LABS: POTASSIUM - SERUM 5.9 mmol/L (3.5-5.1)
[2018-01-21 14:07] LABS: APPEARANCE HAZY (CLEAR); BILIRUBIN 1+ (NEGATIVE); COLOR DK YELLOW (YELLOW); GLUCOSE NEGATIVE (NEGATIVE); KETONE NEGATIVE (NEGATIVE); PROTEIN NEGATIVE (NEGATIVE); SPECIFIC GRAVITY 1.015 (1.005-1.020); UROBILINOGEN NORMAL (NORMAL)
[2018-01-21 14:09] LABS: BACTERIA MANY /hpf (NONE SEEN); EPITHELIAL CELLS 0-5 /hpf (0-5); NITRITE POSITIVE (NEGATIVE); RED CELLS - URINE RARE /hpf (0-5)
[2018-01-21 16:17] LABS: BASOPHILS 0.1 % (0-2); EOSINOPHILS 0.7 % (0-7); HEMATOCRIT 36.4 % (42.0-54.0); HEMOGLOBIN 12.8 g/dL (13.5-17.5); IMMATURE GRANULOCYTES 2.3 % (0-5); LYMPHOCYTES 9.6 % (15-50); MCH 37.6 pg (26.0-34.0); MCHC 35.2 g/dL (31.0-37.0); MCV 107.1 fL (80.0-100.0); MEAN PLATELET VOLUME 10.7 fL (7.4-10.4); MONOCYTES 4.3 % (2-11); PLATELET COUNT 183 10x3/uL (130-400); RDW 15.4 % (11.5-14.5)
[2018-01-21 16:26] LABS: ANION GAP 18.8 mmol/L (8-16); CALCIUM 7.9 mg/dL (8.5-10.1); CARBON DIOXIDE 16.1 mmol/L (21.0-32.0); CREATININE - SERUM 3.1 mg/dL (0.6-1.3); MAGNESIUM - SERUM 1.5 mg/dL (1.8-2.4)
[2018-01-21 16:33] LABS: POTASSIUM - SERUM 7.9 mmol/L (3.5-5.1)
[2018-01-21 17:05] LABS: CKMB 0.7 U/L (0.0-3.6); CREATINE KINASE 88 UL (21-232); TROPONIN-I < 0.017 ng/mL (0.000-0.060)
[2018-01-21] MEDS ORDERED: PERCOCET 10/3251 TA1 PO (19:36)
[2018-01-21 22:28] LABS: CKMB 0.9 U/L (0.0-3.6); TROPONIN-I < 0.017 ng/mL (0.000-0.060)
[2018-01-21 22:32] LABS: CREATINE KINASE 282 UL (21-232); POTASSIUM - SERUM 6.6 mmol/L (3.5-5.1)
[2018-01-22] VITALS (15 sets, daily range): BP systolic 108–153; BP diastolic 49–98; Ht 175.3 cm; Wt 98.0 kg
[2018-01-22 06:10] LABS: BASOPHILS 0.2 % (0-2); EOSINOPHILS 0 % (0-7); HEMATOCRIT 33.9 % (42.0-54.0); HEMOGLOBIN 11.6 g/dL (13.5-17.5); IMMATURE GRANULOCYTES 1.9 % (0-5); LYMPHOCYTES 10.9 % (15-50); MCH 36.5 pg (26.0-34.0); MCHC 34.2 g/dL (31.0-37.0); MCV 106.6 fL (80.0-100.0); MEAN PLATELET VOLUME 10.8 fL (7.4-10.4); MONOCYTES 5.1 % (2-11); NEUTROPHILS 81.9 % (40-80); PLATELET COUNT 169 10x3/uL (130-400); RBC 3.18 10x6/uL (4.20-6.10); RDW 15.1 % (11.5-14.5); WBC 11.3 10x3/uL (4.8-10.8)
[2018-01-22 06:36] LABS: CALC OSMOLALITY 264 mosm/kg (275-300); CALCIUM 8.4 mg/dL (8.5-10.1); CHLORIDE - SERUM 96 mmol/L (98-107); CKMB 0.4 U/L (0.0-3.6); CREATINE KINASE 90 UL (21-232); GLUCOSE 173 mg/dL (74-106); MAGNESIUM - SERUM 1.5 mg/dL (1.8-2.4); SODIUM 129 mmol/L (136-145); UREA NITROGEN 19 mg/dL (7-18)
[2018-01-22 06:37] LABS: CARBON DIOXIDE 22.2 mmol/L (21.0-32.0); CREATININE - SERUM 2.2 mg/dL (0.6-1.3); POTASSIUM - SERUM 5.1 mmol/L (3.5-5.1); TROPONIN-I < 0.017 ng/mL (0.000-0.060); eGFR NON AFRICAN AMERICAN 33 mL/min (90-120)
[2018-01-22] MEDS ORDERED: COREG12.5 MG PO (10:24)
[2018-01-23] VITALS: BP 148/91
[2018-01-23 04:00] VITALS: BP 160/103
[2018-01-23 08:30] VITALS: BP 129/83
[2018-01-23 11:04] VITALS: BP 131/75
[2018-01-23] MEDS ORDERED: LEVAQUIN500 MG PO (13:14)
== END 2018-01-23 16:00 | disposition home or self-care (01) | DRG 309 ==
LOC: D.ER 12:27 → D.M2 16:15 → D.EDHOLD 16:15 → D.ICU 18:19 → D.M2 01-22 22:22
PROVIDERS: Family Medicine
DX: R00.1 Bradycardia, unspecified (principal); N17.9 Acute kidney failure, unspecified; N39.0 Urinary tract infection, site not specified; I42.6 Alcoholic cardiomyopathy; I25.10 Atherosclerotic heart disease of native coronary artery without angina pectoris; E87.5 Hyperkalemia; I11.0 Hypertensive heart disease with heart failure; I50.9 Heart failure, unspecified; F10.20 Alcohol dependence, uncomplicated; N40.0 Benign prostatic hyperplasia without lower urinary tract symptoms; I95.9 Hypotension, unspecified; E03.9 Hypothyroidism, unspecified; Z95.5 Presence of coronary angioplasty implant and graft; Z86.73 Personal history of transient ischemic attack (TIA), and cerebral infarction without residual deficits

== ENCOUNTER → 2018-05-07 09:59 | Outpatient (CLI) | payer MEDICARE ==
[2018-01-22 09:37] VITALS: BMI 31.9
[~2018-05-07 09:59] MED LIST changes: +COREG12.5 MG PO; +FLAGYL500 MG PO; +FLORAJEN3 CAPS460 MG PO; +LEVAQUIN500 MG PO; +LEVAQUIN750 MG PO
== END | disposition home or self-care (01) ==
LOC: D.CT 09:59
DX: R19.7 Diarrhea, unspecified (principal)

== ENCOUNTER 2018-05-15 11:56 | Inpatient (IN) | payer MEDICARE ==
[~2018-05-15] VITALS: Ht 175.3 cm; Wt 95.0 kg
[~2018-05-15 11:56] MED LIST changes: -FLAGYL500 MG PO; -FLORAJEN3 CAPS460 MG PO; -LEVAQUIN750 MG PO
[2018-05-15 13:16] LABS: HEMATOCRIT 27.9 % (42.0-54.0); HEMOGLOBIN 9.7 g/dL (13.5-17.5); MCH 36.1 pg (26.0-34.0); MCHC 34.8 g/dL (31.0-37.0); MCV 103.7 fL (80.0-100.0); MEAN PLATELET VOLUME 11.3 fL (7.4-10.4); PLATELET COUNT 375 10x3/uL (130-400); RBC 2.69 10x6/uL (4.20-6.10); RDW 15.8 % (11.5-14.5); WBC 25.2 10x3/uL (4.8-10.8)
[2018-05-15 13:21] LABS: ALBUMIN 2.4 g/dL (3.4-5.0); ALKALINE PHOSPHATASE 334 U/L (46-116); ALT (SGPT) 17 U/L (10-68); AMYLASE - SERUM 14 U/L (25-115); BILIRUBIN - TOTAL 3.05 mg/dL (0.2-1.3); C-REACTIVE PROTEIN 9.3 mg/dL (0.0-0.9); CARBON DIOXIDE 26.1 mmol/L (21.0-32.0); CHLORIDE - SERUM 99 mmol/L (98-107); CREATINE KINASE 90 UL (21-232); LIPASE 115 U/L (73-393); PRO BNP 508 pg/mL (0-125); PROTEIN - SERUM 6.3 g/dL (6.4-8.2); SODIUM 135 mmol/L (136-145); UREA NITROGEN 7 mg/dL (7-18); eGFR NON AFRICAN AMERICAN 82 mL/min (90-120)
[2018-05-15 13:22] LABS: CALC OSMOLALITY 267 mosm/kg (275-300); GLUCOSE 106 mg/dL (74-106); TROPONIN-I < 0.017 ng/mL (0.000-0.060)
[2018-05-15 13:32] LABS: CALCIUM 6.9 mg/dL (8.5-10.1); POTASSIUM - SERUM 2.8 mmol/L (3.5-5.1)
[2018-05-15 14:03] LABS: INR 2.48 (0.85-1.17); PROTIME 26.2 SECONDS (11.6-15.0)
[2018-05-15 14:12] LABS: D-DIMER-QUANTITATIVE 6.75 ug/mLFEU (0.20-0.54)
[2018-05-15 14:19] LABS: HYPOCHROMASIA OCC; LYMPHOCYTES 16 % (15-50); MONOCYTES 13 % (2-11); NEUTROPHILS 65 % (40-80); PLATELET ESTIMATE NORMAL
[2018-05-15 18:21] LABS: APPEARANCE CLEAR (CLEAR); BILIRUBIN NEGATIVE (NEGATIVE); COLOR BROWN (YELLOW); GLUCOSE NEGATIVE (NEGATIVE); KETONE NEGATIVE (NEGATIVE); NITRITE NEGATIVE (NEGATIVE); PROTEIN TRACE mg/dL (NEGATIVE); SPECIFIC GRAVITY 1.015 (1.005-1.020); UROBILINOGEN NORMAL (NORMAL)
[2018-05-15 18:23] LABS: BACTERIA MANY /hpf (NONE SEEN); RED CELLS - URINE 0-5 /hpf (0-5); WHITE CELLS - URINE 0-5 /hpf (0-5)
[2018-05-15 19:11] VITALS: BP 142/91
[2018-05-16 06:40] VITALS: BP 107/79
[2018-05-16 07:49] VITALS: BP 118/81
[2018-05-16 10:54] VITALS: BMI 30.1
[2018-05-16 11:28] VITALS: BP 123/76
[2018-05-16 12:23] VITALS: Ht 175.3 cm; Wt 95.0 kg
[2018-05-16 16:37] VITALS: BP 131/72
[2018-05-16 20:14] VITALS: BP 108/76
[2018-05-17] VITALS: BP 92/62
[2018-05-17 04:00] VITALS: BP 112/72
[2018-05-17 04:40] LABS: BASOPHILS 0.3 % (0-2); EOSINOPHILS 1.6 % (0-7); HEMATOCRIT 27.3 % (42.0-54.0); HEMOGLOBIN 9.4 g/dL (13.5-17.5); IMMATURE GRANULOCYTES 4.2 % (0-5); LYMPHOCYTES 9.5 % (15-50); MCH 35.9 pg (26.0-34.0); MCHC 34.4 g/dL (31.0-37.0); MCV 104.2 fL (80.0-100.0); MEAN PLATELET VOLUME 11.1 fL (7.4-10.4); MONOCYTES 7.5 % (2-11); NEUTROPHILS 76.9 % (40-80); RBC 2.62 10x6/uL (4.20-6.10); RDW 16.2 % (11.5-14.5)
[2018-05-17 04:44] LABS: PLATELET COUNT 236 10x3/uL (130-400); WBC 16.1 10x3/uL (4.8-10.8)
[2018-05-17 04:48] LABS: INR 2.16 (0.85-1.17); PROTIME 23.5 SECONDS (11.6-15.0)
[2018-05-17 05:04] LABS: ALBUMIN 1.8 g/dL (3.4-5.0); ALKALINE PHOSPHATASE 270 U/L (46-116); ALT (SGPT) 15 U/L (10-68); BILIRUBIN - TOTAL 2.15 mg/dL (0.2-1.3); CARBON DIOXIDE 25.5 mmol/L (21.0-32.0); CHLORIDE - SERUM 108 mmol/L (98-107); CREATININE - SERUM 0.8 mg/dL (0.6-1.3); GLUCOSE 107 mg/dL (74-106); MAGNESIUM - SERUM 1.1 mg/dL (1.8-2.4); PHOSPHOROUS 1.6 mg/dL (2.5-4.9); PROTEIN - SERUM 4.9 g/dL (6.4-8.2); SODIUM 141 mmol/L (136-145); eGFR NON AFRICAN AMERICAN > 90 mL/min (90-120)
[2018-05-17 05:05] LABS: CALC OSMOLALITY 277 mosm/kg (275-300); UREA NITROGEN 3 mg/dL (7-18)
[2018-05-17 05:06] LABS: CALCIUM 6.5 mg/dL (8.5-10.1)
[2018-05-17 08:13] VITALS: BP 153/57
[2018-05-17 12:46] VITALS: BP 155/63
[2018-05-17 16:04] VITALS: BP 141/70
[2018-05-17 21:56] VITALS: BP 92/46
[2018-05-18 00:45] VITALS: BP 94/48
[2018-05-18 04:16] VITALS: BP 112/77
[2018-05-18 05:02] LABS: BASOPHILS 0.4 % (0-2); EOSINOPHILS 1.9 % (0-7); HEMATOCRIT 27.3 % (42.0-54.0); HEMOGLOBIN 9.2 g/dL (13.5-17.5); IMMATURE GRANULOCYTES 5.5 % (0-5); LYMPHOCYTES 10.4 % (15-50); MCH 35.2 pg (26.0-34.0); MCHC 33.7 g/dL (31.0-37.0); MCV 104.6 fL (80.0-100.0); MEAN PLATELET VOLUME 11.4 fL (7.4-10.4); MONOCYTES 7.1 % (2-11); NEUTROPHILS 74.7 % (40-80); PLATELET COUNT 248 10x3/uL (130-400); RBC 2.61 10x6/uL (4.20-6.10); RDW 16.3 % (11.5-14.5); WBC 15.9 10x3/uL (4.8-10.8)
[2018-05-18 05:09] LABS: INR 1.87 (0.85-1.17)
[2018-05-18 05:28] LABS: ALBUMIN 1.9 g/dL (3.4-5.0); ALKALINE PHOSPHATASE 276 U/L (46-116); ALT (SGPT) 14 U/L (10-68); BILIRUBIN - TOTAL 2.16 mg/dL (0.2-1.3); CALC OSMOLALITY 276 mosm/kg (275-300); CARBON DIOXIDE 22.2 mmol/L (21.0-32.0); CHLORIDE - SERUM 110 mmol/L (98-107); CREATININE - SERUM 0.8 mg/dL (0.6-1.3); GLUCOSE 116 mg/dL (74-106); MAGNESIUM - SERUM 1.2 mg/dL (1.8-2.4); POTASSIUM - SERUM 3.3 mmol/L (3.5-5.1); PROTEIN - SERUM 5.1 g/dL (6.4-8.2); SODIUM 140 mmol/L (136-145); UREA NITROGEN 3 mg/dL (7-18); eGFR NON AFRICAN AMERICAN > 90 mL/min (90-120)
[2018-05-18 05:29] LABS: PHOSPHOROUS 1.3 mg/dL (2.5-4.9)
[2018-05-18 05:30] LABS: CALCIUM 6.8 mg/dL (8.5-10.1)
[2018-05-18 07:47] VITALS: BP 105/69
[2018-05-18 11:32] VITALS: BP 111/78
[2018-05-18 15:34] VITALS: BP 118/82
[2018-05-18 20:46] VITALS: BP 113/81
[2018-05-19 00:30] VITALS: BP 108/77
[2018-05-19 04:30] VITALS: BP 120/90
[2018-05-19 05:04] LABS: BASOPHILS 0.4 % (0-2); EOSINOPHILS 1.5 % (0-7); HEMATOCRIT 28.4 % (42.0-54.0); HEMOGLOBIN 9.3 g/dL (13.5-17.5); IMMATURE GRANULOCYTES 4.2 % (0-5); LYMPHOCYTES 9.7 % (15-50); MCH 34.7 pg (26.0-34.0); MCHC 32.7 g/dL (31.0-37.0); MEAN PLATELET VOLUME 10.9 fL (7.4-10.4); MONOCYTES 6.4 % (2-11); NEUTROPHILS 77.8 % (40-80); PLATELET COUNT 219 10x3/uL (130-400); RBC 2.68 10x6/uL (4.20-6.10); RDW 16.8 % (11.5-14.5); WBC 15.9 10x3/uL (4.8-10.8)
[2018-05-19 05:11] LABS: INR 1.81 (0.85-1.17); PROTIME 20.4 SECONDS (11.6-15.0)
[2018-05-19 05:18] LABS: ALBUMIN 1.8 g/dL (3.4-5.0); ALKALINE PHOSPHATASE 258 U/L (46-116); ALT (SGPT) 15 U/L (10-68); BILIRUBIN - TOTAL 1.88 mg/dL (0.2-1.3); CARBON DIOXIDE 20.9 mmol/L (21.0-32.0); CHLORIDE - SERUM 114 mmol/L (98-107); CREATININE - SERUM 0.8 mg/dL (0.6-1.3); GLUCOSE 113 mg/dL (74-106); MAGNESIUM - SERUM 1.3 mg/dL (1.8-2.4); PHOSPHOROUS 1.6 mg/dL (2.5-4.9); POTASSIUM - SERUM 4.1 mmol/L (3.5-5.1); SODIUM 142 mmol/L (136-145); eGFR NON AFRICAN AMERICAN > 90 mL/min (90-120)
[2018-05-19 05:19] LABS: CALC OSMOLALITY 279 mosm/kg (275-300); CALCIUM 6.9 mg/dL (8.5-10.1); UREA NITROGEN 2 mg/dL (7-18)
[2018-05-19 08:08] VITALS: BP 129/90
[2018-05-19 11:25] VITALS: BP 108/72
[2018-05-19 15:35] VITALS: BP 120/83
[2018-05-19 20:58] VITALS: BP 111/84
[2018-05-20] VITALS: BP 117/82
[2018-05-20 03:53] LABS: BASOPHILS 0.3 % (0-2); EOSINOPHILS 1.5 % (0-7); HEMATOCRIT 27.3 % (42.0-54.0); HEMOGLOBIN 9.2 g/dL (13.5-17.5); IMMATURE GRANULOCYTES 4.5 % (0-5); LYMPHOCYTES 11.8 % (15-50); MCH 35.7 pg (26.0-34.0); MCHC 33.7 g/dL (31.0-37.0); MCV 105.8 fL (80.0-100.0); MEAN PLATELET VOLUME 11.1 fL (7.4-10.4); MONOCYTES 5.8 % (2-11); NEUTROPHILS 76.1 % (40-80); PLATELET COUNT 208 10x3/uL (130-400); RBC 2.58 10x6/uL (4.20-6.10); RDW 17.3 % (11.5-14.5); WBC 17.7 10x3/uL (4.8-10.8)
[2018-05-20 04:01] LABS: INR 1.76 (0.85-1.17)
[2018-05-20 04:09] LABS: ALBUMIN 1.7 g/dL (3.4-5.0); ALKALINE PHOSPHATASE 269 U/L (46-116); ALT (SGPT) 17 U/L (10-68); BILIRUBIN - TOTAL 1.75 mg/dL (0.2-1.3); CALC OSMOLALITY 279 mosm/kg (275-300); CALCIUM 7.1 mg/dL (8.5-10.1); CARBON DIOXIDE 21.2 mmol/L (21.0-32.0); CHLORIDE - SERUM 114 mmol/L (98-107); CREATININE - SERUM 0.8 mg/dL (0.6-1.3); GLUCOSE 82 mg/dL (74-106); MAGNESIUM - SERUM 1.2 mg/dL (1.8-2.4); PHOSPHOROUS 1.8 mg/dL (2.5-4.9); POTASSIUM - SERUM 4.4 mmol/L (3.5-5.1); PROTEIN - SERUM 4.9 g/dL (6.4-8.2); SODIUM 143 mmol/L (136-145); UREA NITROGEN 2 mg/dL (7-18); eGFR NON AFRICAN AMERICAN > 90 mL/min (90-120)
[2018-05-20 04:30] VITALS: BP 123/83
[2018-05-20 07:42] VITALS: BP 131/71
[2018-05-20 11:28] VITALS: BP 136/78
[2018-05-20] MEDS ORDERED: FLORAJEN3 CAPS460 MG PO (14:08)
[2018-05-20] MEDS ORDERED: FLAGYL500 MG PO (14:09)
[2018-05-20] MEDS ORDERED: LEVAQUIN750 MG PO (14:09)
== END 2018-05-20 16:45 | disposition home or self-care (01) | DRG 432 ==
LOC: D.ER 11:56 → D.M2 20:59 → D.EDHOLD 20:59 → D.M2 22:27
PROVIDERS: Family Medicine; Internal Medicine Nephrology
DX: K70.40 Alcoholic hepatic failure without coma (principal); E43 Unspecified severe protein-calorie malnutrition; D68.9 Coagulation defect, unspecified; N39.0 Urinary tract infection, site not specified; E87.1 Hypo-osmolality and hyponatremia; F10.20 Alcohol dependence, uncomplicated; N40.0 Benign prostatic hyperplasia without lower urinary tract symptoms; E87.5 Hyperkalemia; D53.9 Nutritional anemia, unspecified; E83.42 Hypomagnesemia; E03.9 Hypothyroidism, unspecified; I25.10 Atherosclerotic heart disease of native coronary artery without angina pectoris; Z68.30 Body mass index [BMI] 30.0-30.9, adult

== ENCOUNTER → 2018-06-25 14:20 | Outpatient (CLI) | payer MEDICARE ==
[2018-05-16 12:23] VITALS: BMI 30.1
[~2018-06-25 14:20] MED LIST changes: +FLAGYL500 MG PO; +FLORAJEN3 CAPS460 MG PO; +LEVAQUIN750 MG PO
== END | disposition home or self-care (01) ==
LOC: D.LAB 14:20
DX: K74.60 Unspecified cirrhosis of liver (principal)

== ENCOUNTER → 2018-08-30 09:51 | Outpatient (CLI) | payer MEDICARE ==
[2018-05-16 12:23] VITALS: BMI 30.1
== END | disposition home or self-care (01) ==
LOC: D.CT 09:51
DX: R91.1 Solitary pulmonary nodule (principal)

== ENCOUNTER → 2018-12-27 12:11 | Outpatient (CLI) | payer MEDICARE ==
[2018-05-16 12:23] VITALS: BMI 30.1
== END | disposition home or self-care (01) ==
LOC: D.LAB 12:11
PROVIDERS: ATTEND Nurse Practitioner Acute Care
DX: E87.5 Hyperkalemia (principal)

== ENCOUNTER → 2019-06-30 08:31 | Outpatient (CLI) | payer MEDICARE ==
[2018-05-16 12:23] VITALS: BMI 30.1
== END | disposition home or self-care (01) ==
LOC: D.US 08:31
PROVIDERS: ATTEND Nurse Practitioner Acute Care
DX: K74.60 Unspecified cirrhosis of liver (principal)